=== PATIENT | male | born 1965 | race Caucasian/White ===

== ENCOUNTER 2025-01-19 16:19 | Emergency (ER) | payer MEDICARE, BC, SELFPAY ==
[2025-01-19 16:30] VITALS: BP 132/84
[2025-01-19 16:32] LABS: Glucose - Point of Care 184 mg/dl (70-99)
[2025-01-19 17:00] LABS: % Basophils 0.5 % (0-2); % Eosinophils 3.3 % (0-6); % Immature Granulocytes 0.3 % (0-0.5); % Lymphocytes 38.9 % (20.5-51.1); % Monocytes 7.6 % (1.7-9.3); % Neutrophils 49.4 % (42.2-75.2); Absolute Eosinophils 0.2 10^3/uL (0-0.7); Absolute Lymphocytes 2.3 10^3/uL (1.2-3.4); Absolute Monocytes 0.4 10^3/uL (0.1-0.6); Absolute Neutrophils 2.9 10^3/uL (1.4-6.5); Hemoglobin 14.7 g/dL (13.0-18.0); Mean Corp Hgb Conc. 35.9 g/dL (33.0-37.0); Mean Corpuscular Hgb 31.8 pg (27.0-31.0); Mean Corpuscular Volume 88.7 fL (80.0-94.0); Mean Platelet Volume 9.6 fL (7.4-10.4); Nucleated Red Blood Cells % 0 % (-); Platelet Count 172 10^3/uL (130-400); Red Blood Cell Count 4.62 10^6/uL (4.70-6.10); Red Cell Dist. Width 12.5 % (11.5-14.5); White Blood Cell Count 5.8 10^3/uL (4.8-10.8)
[2025-01-19 17:28] LABS: ALT (SGPT) 55 U/L (0-50); AST (SGOT) 51 U/L (17-59); Alkaline Phosphatase 44 U/L (38-126); Blood Urea Nitrogen 19 mg/dl (9-20); Calcium 10.1 mg/dl (8.4-10.2); Carbon Dioxide 25 mmol/L (22-30); Chloride 99 mmol/L (98-107); Glucose 194 mg/dl (70-99); Potassium 4.5 mmol/L (3.5-5.1); Sodium 135 mmol/L (135-145); Total Bilirubin 1.1 mg/dl (0.2-1.3); Total Protein 7.8 g/dl (6.3-8.2); eGFR > 60.00
--- NOTE | 2025-01-19 18:10 | ED.GENMED ---
History of Present Illness
General
Chief Complaint: Blood Sugar Problem
Source: patient
Exam Limitations: none
Time Seen by Provider: 01/19/25 17:59
Nursing documentation reviewed up to this point in time: agreed with
History of Present Illness
History of Present Illness:
Patient is a 59-year-old male with history of cardaic bypass surgery aortic aneurysm diabetes presents to the ER for evaluation. Patient is visiting family from [place] and reports he is a type II diabetic. He recently has been
monitoring his sugar over the past month and over the past month his blood sugar has been elevated. Recently he reports his machine has been reading high. He called his family doctor [place]. His family doctor raise his metformin from 500
mg every day to 1000 every day. He started this yesterday but his physician instructed him to come to the ER.
He otherwise has no complaints. He reports he is always thirsty and therefore drinks a lot of water he does admit that he is unsure of what to eat what not to eat.
He denies any chest pain shortness of breath nausea vomiting abdominal pain.
Review of Systems
Review of Systems
Allergies reviewed?: Yes
All Other Systems: ROS reviewed and negative except as documented in HPI and ROS
Constitutional: Reports no symptoms; Denies fever, fatigue or chills
EENT: Reports no symptoms
Respiratory: Reports no symptoms
Cardiac: Reports no symptoms
ABD/GI: Reports no symptoms
: Reports no symptoms
Musculoskeletal: Reports no symptoms
Skin: Reports no symptoms
Neurological: Reports no symptoms
Endocrine: Reports polydipsia
Phy Exam
General Physical Exam
General Presentation: no apparent distress
General age: appears stated age
General Skin: warm and dry
General Mental: alert
General Hydration: appears well hydrated
General Chronic Disability: contractures
Cardiovascular Exam
Cardiovascular Exam: regular rate/rhythm and systolic murmur ((pt reports murmur is old ) )
Neurological Exam
Neurological Exam: alert and oriented x3
Musculoskeletal Exam
Musculoskeletal Exam: full ROM
Skin Exam
Skin Exam: normal color and warm/dry
Psychiatric Exam
Psychiatric Exam: normal mood/affect
Course
Orders/Labs/Results
Orders:
Orders
01/19/25 16:48
CMP [Comprehensive Metabolic Panel] Urgent
Complete Blood Count/With Diff Urgent
Abnormal Lab Results
01/19/25 01/19/25 01/19/25
16:32 16:48 18:33
RBC 4.62 L 10^6/uL
(4.70-6.10)
MCH 31.8 H pg
(27.0-31.0)
Glucose 194 H mg/dl
(70-99)
ALT 55 H U/L
(0-50)
POC Glucose 184 H mg/dl 182 H mg/dl
(70-99) (70-99)
01/19/25 16:48
01/19/25 16:48
Vital Signs
Initial and Last Documented VS:
Initial Vital Signs
Temp Pulse Resp BP Pulse Ox
98.5 F 63 18 132/84 98
01/19/25 16:30 01/19/25 16:30 01/19/25 16:30 01/19/25 16:30 01/19/25 16:30
Last Documented Vital Signs
Temp Pulse Resp BP Pulse Ox
98.5 F 63 18 132/84 98
01/19/25 16:30 01/19/25 16:30 01/19/25 16:30 01/19/25 16:30 01/19/25 16:30
Mortgage Loan Underwriter consulted with Physician
Mortgage Loan Underwriter consulted with physician?: Yes
Name of Physician Consulted: Azael
MDM/Problems Addressed
Differential Diagnosis Includes:
not limited to: Hyperglycemia
MDM/Problems Addressed:
As documented patient is a type II diabetic who presented for elevated blood sugars. For the past month patient's blood sugar has been elevated he reports an average in the 300s but has been reading high. His family doctor increased his metformin
yesterday from 500 mg a day to 1000 mg a day. He is Dr. However instructed him to come to the ER. He presents awake alert no acute distress no nausea vomiting abdominal pain fever. No recent illness. Patient's blood sugar and chemistry was 194
with normal kidney function and electrolytes no gap normal chloride and CO2.
Patient no acute distress admits that he is unsure of what to eat. I did review with patient certain foods to avoid. He is to closely monitor his sugar however nothing to do with his labs look good. He is mildly hyperglycemic however no acute
distress. Case reviewed with ED physician . stable for discharge.
Chronic conditions affecting care:
CABG, aortic aneurysm repair, NIDDM
*Critical Care Note
Total Time (30-74mins, 75-104mins- exclusive of procedures): Not Applicable
ED Attending Note
-
Portions of this chart may have been created with voice recognition software.� Occasional wrong word or��sound alike� substitutions may have occurred due to the inherent limitations of voice recognition software.
Discharge Plan
Departure
Patient Disposition: Home (Routine Discharge)
Date of Disposition: 01/19/25
Time of Disposition: 18:48
Patient with high blood pressure during this ER visit?: Yes
Covid-19: Not Applicable
Discharge Problem:
Hyperglycemia
Instructions: Type 2 Diabetes (DC), The ABCs of diabetes, Hyperglycemia, Child (DC), Type 2 diabetes - Discharge instructions
Activity Restrictions/Additional Instructions:
As discussed continue to closely monitor your sugars.
Change diet as discussed.
see education paperwork
Interventions
Interventions:
*Risk Screen - Suicide Last Done: 01/19/25 16:30
*General Assessment Last Done: 01/19/25 16:30
*Neglect/Abuse Screening Last Done: 01/19/25 16:30
*ED COVID-19 Vaccine History Last Done: 01/19/25 16:30
Discharge Date and Time
Print Language: BURMESE
[2025-01-19 18:34] LABS: Glucose - Point of Care 182 mg/dl (70-99)
== END 2025-01-19 19:10 | disposition home or self-care (01) ==
LOC: EMR 16:19
PROVIDERS: Emergency Medicine; EMERGENCY PHYSICIAN Student in an Organized Health Care Education/Training Program
DX: E11.65 Type 2 diabetes mellitus with hyperglycemia (principal); Z95.1 Presence of aortocoronary bypass graft
CPT/HCPCS: 99283; 80053; 82962; 85025

== ENCOUNTER 2025-11-29 06:35 | Outpatient (RCR) | payer MEDICARE, BC, SELFPAY ==
[2025-11-15 09:54] LABS: Glucose - Point of Care 138 mg/dl (70-99)
[2025-11-15 10:41] LABS: Glucose - Point of Care 128 mg/dl (70-99)
[2025-11-17 06:35] LABS: Glucose - Point of Care 190 mg/dl (70-99)
[2025-11-17 07:27] LABS: Glucose - Point of Care 150 mg/dl (70-99)
[2025-11-20 06:35] LABS: Glucose - Point of Care 143 mg/dl (70-99)
[2025-11-20 07:31] LABS: Glucose - Point of Care 142 mg/dl (70-99)
[2025-11-20 09:52] LABS: HDL Cholesterol 30 mg/dl; LDL Cholesterol, Calculated 27 mg/dl; Very Low Density Lipoprotein 71 mg/dl (0-30)
[2025-11-24 06:40] LABS: Glucose - Point of Care 139 mg/dl (70-99)
[2025-11-24 07:32] LABS: Glucose - Point of Care 139 mg/dl (70-99)
[2025-11-27 06:42] LABS: Glucose - Point of Care 163 mg/dl (70-99)
[2025-11-27 07:34] LABS: Glucose - Point of Care 134 mg/dl (70-99)
[2025-12-01 06:37] LABS: Glucose - Point of Care 135 mg/dl (70-99)
[2025-12-01 07:31] LABS: Glucose - Point of Care 121 mg/dl (70-99)
== END 2025-11-29 23:59 | disposition home or self-care (01) ==
LOC: CRHB 06:35
PROVIDERS: ATTENDING PHYSICIAN Internal Medicine Cardiovascular Disease
DX: I25.10 Atherosclerotic heart disease of native coronary artery without angina pectoris (principal); Z95.5 Presence of coronary angioplasty implant and graft
CPT/HCPCS: 80061; 82962; G0422; G0423